=== PATIENT | female | born 1980 | race Two or more races ===

== ENCOUNTER 2018-06-08 22:39 | Outpatient (CLI) | payer OTHER ==
[~2018-06-08 22:39] MED LIST: [UNRECOGNIZED DRUG - REMARK]
== END 2018-06-09 03:12 | disposition left against medical advice (07) ==
LOC: OBS/DEL 22:39
DX: O76 Abnormality in fetal heart rate and rhythm complicating labor and delivery (principal); O60.02 Preterm labor without delivery, second trimester; Z34.02 Encounter for supervision of normal first pregnancy, second trimester

== ENCOUNTER 2018-09-12 17:48 | Inpatient (IN) | payer OTHER ==
[~2018-09-12] VITALS: Ht 160 cm; Wt 83.9 kg
[2018-09-12] MEDS ORDERED: PRENATAL TABLE1 EAC1 PO (19:19)
[2018-09-12] MEDS ORDERED: AMPICILLIN SOD500 MG PO (19:20)
[2018-09-17] MEDS ORDERED: ALDOMET500 MG PO (08:12)
[2018-09-17] MEDS ORDERED: FEOSOL325 MG PO (08:12)
== END 2018-09-17 13:28 | DRG 788 ==
LOC: O/R 17:48 → LDR 17:48 → O/R 09-13 16:38 → OB/GYN 09-13 18:21
PROVIDERS: ADMIT Specialist
PROC: 10907ZC Drainage of Amniotic Fluid, Therapeutic from Products of Conception, Via Natural or Artificial Opening (ICD-10-PCS; 2018-09-12)
PROC: 3E033VJ Introduction of Other Hormone into Peripheral Vein, Percutaneous Approach (ICD-10-PCS; 2018-09-12)
PROC: 4A1HXCZ Monitoring of Products of Conception, Cardiac Rate, External Approach (ICD-10-PCS; 2018-09-12)
PROC: 10D00Z1 Extraction of Products of Conception, Low, Open Approach (ICD-10-PCS; principal; 2018-09-13 15:15)
DX: O65.4 Obstructed labor due to fetopelvic disproportion, unspecified (principal); Z3A.37 37 weeks gestation of pregnancy; Z37.0 Single live birth

== ENCOUNTER → 2019-02-18 12:26 | Outpatient (CLI) | payer OTHER ==
[~2019-02-18 12:26] MED LIST changes: +ALDOMET500 MG PO; +AMPICILLIN SOD500 MG PO; +FEOSOL325 MG PO; +PRENATAL TABLE1 EAC1 PO
== END | disposition home or self-care (01) ==
LOC: LAB 12:26
DX: O98.911 Unspecified maternal infectious and parasitic disease complicating pregnancy, first trimester (principal)

== ENCOUNTER → 2019-02-26 | Outpatient (CLI) | payer OTHER | END | disposition home or self-care (01) | LOC: PRENATAL 10:08 | DX: O26.891 Other specified pregnancy related conditions, first trimester (principal); O09.521 Supervision of elderly multigravida, first trimester ==

== ENCOUNTER 2019-04-09 10:16 | Outpatient (CLI) | payer OTHER | END 2019-04-09 11:35 | disposition home or self-care (01) | LOC: PRENATAL 10:16 | DX: O34.42 Maternal care for other abnormalities of cervix, second trimester (principal); O09.522 Supervision of elderly multigravida, second trimester ==

== ENCOUNTER → 2019-05-02 | Outpatient (CLI) | payer OTHER | END | disposition home or self-care (01) | LOC: PRENATAL 14:00 | DX: O34.42 Maternal care for other abnormalities of cervix, second trimester (principal); O09.522 Supervision of elderly multigravida, second trimester; O34.32 Maternal care for cervical incompetence, second trimester ==

== ENCOUNTER 2019-06-04 10:59 | Outpatient (CLI) | payer OTHER | END 2019-06-04 11:30 | disposition home or self-care (01) | LOC: PRENATAL 10:59 | DX: O26.843 Uterine size-date discrepancy, third trimester (principal); O34.211 Maternal care for low transverse scar from previous cesarean delivery; O09.523 Supervision of elderly multigravida, third trimester; O44.00 Complete placenta previa NOS or without hemorrhage, unspecified trimester ==

== ENCOUNTER → 2019-06-27 | Outpatient (CLI) | payer OTHER | END | disposition home or self-care (01) | LOC: PRENATAL 13:00 | DX: O34.43 Maternal care for other abnormalities of cervix, third trimester (principal); O09.213 Supervision of pregnancy with history of pre-term labor, third trimester; O34.211 Maternal care for low transverse scar from previous cesarean delivery ==

== ENCOUNTER → 2019-07-25 | Outpatient (CLI) | payer OTHER ==
[~2019-07-25] MED LIST changes: +PERCOCET 5-3251 EACH PO
== END | disposition home or self-care (01) ==
LOC: PRENATAL 11:00
DX: O26.843 Uterine size-date discrepancy, third trimester (principal); O09.513 Supervision of elderly primigravida, third trimester; O34.43 Maternal care for other abnormalities of cervix, third trimester; O34.211 Maternal care for low transverse scar from previous cesarean delivery; Z34.80 Encounter for supervision of other normal pregnancy, unspecified trimester; O09.293 Supervision of pregnancy with other poor reproductive or obstetric history, third trimester

== ENCOUNTER 2019-07-30 12:38 | Inpatient (IN) | payer OTHER ==
[~2019-07-30] VITALS: Ht 162.6 cm; Wt 81.6 kg
[~2019-07-30 12:38] MED LIST changes: -PERCOCET 5-3251 EACH PO
[2019-07-31] MEDS ORDERED: PRENATAL TABLE1 EAC1 PO (15:27)
[2019-08-05] MEDS ORDERED: PERCOCET 5-3251 EACH PO (08:39)
== END 2019-08-05 09:54 | disposition home or self-care (01) | DRG 783 ==
LOC: OBS/DEL 12:38 → LDR 07-31 14:42 → SURG-SUITE 08-02 11:36
PROVIDERS: ADMIT Specialist
PROC: B246ZZZ Ultrasonography of Right and Left Heart (ICD-10-PCS; 2019-07-31)
PROC: BY4FZZZ Ultrasonography of Third Trimester, Single Fetus (ICD-10-PCS; 2019-07-31)
PROC: 4A1HXCZ Monitoring of Products of Conception, Cardiac Rate, External Approach (ICD-10-PCS; 2019-07-31)
PROC: 0UL70ZZ Occlusion of Bilateral Fallopian Tubes, Open Approach (ICD-10-PCS; 2019-08-02)
PROC: 10D00Z1 Extraction of Products of Conception, Low, Open Approach (ICD-10-PCS; principal; 2019-08-02 12:15)
DX: O82 Encounter for cesarean delivery without indication (principal); O60.14X0 Preterm labor third trimester with preterm delivery third trimester, not applicable or unspecified; O76 Abnormality in fetal heart rate and rhythm complicating labor and delivery; I07.1 Rheumatic tricuspid insufficiency; Z3A.35 35 weeks gestation of pregnancy; Z37.0 Single live birth; Z30.2 Encounter for sterilization